=== PATIENT | male | born 1980 | race American Indian/Alaskan Native ===

== ENCOUNTER 2018-10-09 15:40 | Emergency (ER) | payer OTHER ==
--- NOTE | 2018-10-09 15:50 | Emergency Department Report ---
Blank Doc - Documentation Documentation: 38 year old male presents with left sided flank pain x 3 days denies f/chills/n/v/dysuria ua, ACC eval
[2018-10-09 16:03] LABS: Basophils % (Auto) 0.3 % (0.0-1.8); Eosinophils % (Auto) 0.3 % (0.0-4.3); Hematocrit 48.3 % (35.5-45.6); Hemoglobin 16.1 gm/dl (11.8-15.2); Lymphocytes # (Auto) 1.5 K/mm3 (1.2-5.4); Lymphocytes % (Auto) 11.4 % (13.4-35.0); Mean Corpuscular HGB Conc 33 % (32-34); Mean Corpuscular Volume 88 fl (84-94); Monocytes # (Auto) 1.4 K/mm3 (0.0-0.8); Monocytes % (Auto) 10.3 % (0.0-7.3); Platelet Count 191 K/mm3 (140-440); Red Blood Count 5.51 M/mm3 (3.65-5.03); Red Cell Distribution Width 14.1 % (13.2-15.2)
[2018-10-09 16:37] LABS: BUN/Creatinine Ratio 9; Blood Urea Nitrogen 8 mg/dL (9-20); Calcium 9.7 mg/dL (8.4-10.2); Hemolysis Index 19
[2018-10-09] MEDS ORDERED: TORADOL PO ONE (18:33)
--- NOTE | 2018-10-09 18:35 | Emergency Department Report ---
ED Abdominal Pain HPI - General Chief Complaint: Abdominal Pain Stated Complaint: SIDE PAIN/FEVER Time Seen by Provider: 10/09/18 15:47 Source: patient Mode of arrival: Ambulatory Limitations: No Limitations - History of Present Illness Initial Comments: Pt is a 38 yo male who presents to the ED with c/o left flank pain that began 3 days ago. He describes the pain as sharp and a soreness. He states he has not had a BM in 3 days. He denies any N/V/D or urinary sx. He denies any PMHx. he denies every having before. he denies any hx of kidney stones. he denies any prior abdominal surgeries. - Related Data Previous Rx's Medication Instructions Recorded Last Taken Type Acetaminophen/Codeine [Tylenol 1 tab PO Q6H PRN #10 tab 10/09/18 Unknown Rx /Codeine # 3 tab] Ciprofloxacin HCl [Ciprofloxacin 500 mg PO BID 7 Days #14 tab 10/09/18 Unknown Rx TAB] Tamsulosin [Flomax] 0.4 mg PO QDAY 7 Days #7 cap 10/09/18 Unknown Rx metroNIDAZOLE [Flagyl] 500 mg PO TID 7 Days #21 tab 10/09/18 Unknown Rx Allergies Allergy/AdvReac Type Severity Reaction Status Date / Time seafood Allergy Hives Uncoded 10/09/18 15:41 ED Review of Systems ROS: Stated complaint: SIDE PAIN/FEVER Other details as noted in HPI Comment: All other systems reviewed and negative ED Past Medical Hx - Past Medical History Previous Medical History?: No - Surgical History Additional Surgical History: arm - Social History Smoking Status: Never Smoker Substance Use Type: Alcohol - Medications Home Medications: Home Medications Medication Instructions Recorded Confirmed Last Taken Type Acetaminophen/Codeine [Tylenol 1 tab PO Q6H PRN #10 tab 10/09/18 Unknown Rx /Codeine # 3 tab] Ciprofloxacin HCl [Ciprofloxacin 500 mg PO BID 7 Days #14 tab 10/09/18 Unknown Rx TAB] Tamsulosin [Flomax] 0.4 mg PO QDAY 7 Days #7 cap 10/09/18 Unknown Rx metroNIDAZOLE [Flagyl] 500 mg PO TID 7 Days #21 tab 10/09/18 Unknown Rx ED Physical Exam - General Limitations: No Limitations General appearance: alert, in no apparent distress - Head Head exam: Present: atraumatic, normocephalic - Eye Eye exam: Present: normal appearance, PERRL - ENT ENT exam: Present: mucous membranes dry (mildly ) - Respiratory Respiratory exam: Present: normal lung sounds bilaterally. Absent: respiratory distress, wheezes, rales, rhonchi, stridor, chest wall tenderness, accessory muscle use, decreased breath sounds, prolonged expiratory - Cardiovascular Cardiovascular Exam: Present: regular rate, normal rhythm, normal heart sounds. Absent: systolic murmur, diastolic murmur, rubs, gallop - GI/Abdominal GI/Abdominal exam: Present: soft, normal bowel sounds. Absent: distended, t enderness, guarding, rebound, rigid - Back Exam Back exam: Present: CVA tenderness (L) - Neurological Exam Neurological exam: Present: alert, oriented X3 - Psychiatric Psychiatric exam: Present: normal affect, normal mood - Skin Skin exam: Present: warm, dry, intact ED Course Vital Signs 10/09/18 10/09/18 15:47 21:05 Temperature 98.5 F 98.9 F Pulse Rate 88 82 Respiratory 16 18 Rate Blood Pressure 125/86 Blood Pressure 119/79 [Left] O2 Sat by Pulse 98 96 Oximetry ED Medical Decision Making - Lab Data Result diagrams: 10/09/18 15:53 10/09/18 15:53 - Radiology Data Radiology results: report reviewed PROCEDURE: CT ABDOMEN PELVIS WO CON TECHNIQUE: Computerized axial tomography of the abdomen and pelvis was performed without intravenous contrast. This study is performed without intravascular contrast material and its sensitivity for abdominal and pelvic pathology, including neoplasms, inflammation, abscess, free fluid, thrombosis, arterial dissection and infarction, is reduced compared with a contrast enhanced study. CT DOSE LENGTH PRODUCT: 600.2 mGycm HISTORY: left flank pain COMPARISONS: None . FINDINGS: Visualized lower thorax: No significant abnormality. Liver: Normal size and attenuation. Spleen: Normal size and attenuation. Gallbladder and biliary system: Normal. Pancreas: Normal. Adrenals: Normal. Kidneys: There is a 4 mm stone in the right kidney. There is no hydronephrosis.. GI tract: There is focal acute diverticulitis of the left colon. There is no obstruction or perforation. The appendix is normal. . Lymph nodes and mesentery: Normal. Vasculature: Normal.. Bladder: Normal. Reproductive organs: Normal. Peritoneum: There is no ascites or free air, abscess or adenopathy.. Musculoskeletal structures: No significant abnormality. IMPRESSION: There is a 4 mm stone in the right kidney. There is no hydronephrosis.. There is focal acute diverticulitis of the left colon. There is no obstruction or perforation. The appendix is normal. . There is no ascites or free air, abscess or adenopathy.. . This document is electronically signed by Shay Irby MD., October 09 2018 09:26:19 PM ET Transcribed By: CO Dictated By: SHAY IRBY MD Electronically Authenticated By: SHAY IRBY MD Signed Date/Time: 10/09/182028 - Medical Decision Making Pt is a 38 yo male who presents to the ED with c/o left flank pain that began 3 days ago. He describes the pain as sharp and a soreness. He states he has not had a BM in 3 days. He denies any N/V/D or urinary sx. He denies any PMHx. he denies every having before. he denies any hx of kidney stones. he denies any prior abdominal surgeries. vitals are normal. pt has left CVAT on exam, no abdominal tenderness, normal bowel sounds. pt declines IV fluids, states he is tolerating PO intake and would like to drink water by mouth. labs with mildly elevated WBC, UA is normal. CT abd/pelvis shows There is a 4 mm stone in the right kidney. There is no hydronephrosis.. There is focal acute diverticulitis of the left colon. There is no obstruction or perforation. The appendix is normal. There is no ascites or free air, abscess or adenopathy. pt is tolerating PO intake while in the emergency department. pt given cipro/flagyl, flomax, and something for pain. discussed to please take all medication as prescribed. please strain your urine for a kidney stone and take to the urologist office. do not drink ETOH while taking medication. follow up with a GI doctor, urologist, and primary care doctor in the next 2-3 days. return to the emergency room for any new or worsening symptoms. discussed to use over the counter medications for constipation and return if sx do not improve. Critical care attestation.: If time is entered above; I have spent that time in minutes in the direct care of this critically ill patient, excluding procedure time. ED Disposition Clinical Impression: Diverticulitis, Nephrolithiasis, Left flank pain Disposition: DC-01 TO HOME OR SELFCARE Is pt being admited?: No Does the pt Need Aspirin: No Condition: Stable Instructions: Diverticulitis (ED), Kidney Stones (ED), How to Strain Your Urine (ED) Additional Instructions: please take all medication as prescribed. please strain your urine for a kidney stone and take to the urologist office. do not drink ETOH while taking medication. follow up with a GI doctor, urologist, and primary care doctor in the next 2-3 days. return to the emergency room for any new or worsening symptoms. Prescriptions: Ciprofloxacin HCl [Ciprofloxacin TAB] 500 mg PO BID 7 Days #14 tab metroNIDAZOLE [Flagyl] 500 mg PO TID 7 Days #21 tab Tamsulosin [Flomax] 0.4 mg PO QDAY 7 Days #7 cap Acetaminophen/Codeine [Tylenol /Codeine # 3 tab] 1 tab PO Q6H PRN #10 tab PRN Reason: Pain , Severe (7-10) Referrals: GABE ROGEL MD [Primary Care Provider] - 2-3 Days [facility] [Provider Group] - 2-3 Days CHERRY HUTCHISON MD [Staff Physician] - 2-3 Days Forms: Work/School Release Form(ED) Time of Disposition: 20:37 Print Language: BRAZILIAN
[2018-10-09 19:02] LABS: Bacteria,Urine 1+ /HPF (Negative); Bilirubin,Urine NEG (Negative); Blood,Urine SM (Negative); Color,Urine Yellow (Yellow); Mucus,Urine 3+ /HPF
--- NOTE | 2018-10-09 20:29 | Cat Scan Report ---
PROCEDURE: CT ABDOMEN PELVIS WO CON TECHNIQUE: Computerized axial tomography of the abdomen and pelvis was performed without intravenous contrast. This study is performed without intravascular contrast material and its sensitivity for ab dominal and pelvic pathology, including neoplasms, inflammation, abscess, free fluid, thrombosis, art erial dissection and infarction, is reduced compared with a contrast enhanced study. CT DOSE LENGTH PRODUCT: 600.2 mGycm HISTORY: left flank pain COMPARISONS: None . FINDINGS: Visualized lower thorax: No significant abnormality. Liver: Normal size and attenuation. Spleen: Normal size and attenuation. Gallbladder and biliary system: Normal. Pancreas: Normal. Adrenals: Normal. Kidneys: There is a 4 mm stone in the right kidney. There is no hydronephrosis.. GI tract: There is focal acute diverticulitis of the left colon. There is no obstruction or perforat ion. The appendix is normal. . Lymph nodes and mesentery: Normal. Vasculature: Normal.. Bladder: Normal. Reproductive organs: Normal. Peritoneum: There is no ascites or free air, abscess or adenopathy.. Musculoskeletal structures: No significant abnormality. IMPRESSION: There is a 4 mm stone in the right kidney. There is no hydronephrosis.. There is focal acute diverticulitis of the left colon. There is no obstruction or perforation. The ap pendix is normal. . There is no ascites or free air, abscess or adenopathy.. . This document is electronically signed by Jose Wright MD., October 09 2018 09:26:19 PM ET
[2018-10-09 21:07] VITALS: BP 119/79
== END 2018-10-09 21:05 | disposition home or self-care (01) ==
LOC: ED 15:40
DX: K57.92 Diverticulitis of intestine, part unspecified, without perforation or abscess without bleeding (principal); N20.0 Calculus of kidney; Z91.013 Allergy to seafood
CPT/HCPCS: 36415; 74176; 80048; 81001; 85025